=== PATIENT | female | born 1975 | race Caucasian/White ===

== ENCOUNTER 2016-10-17 13:54 | Emergency (ER) | payer OTHER ==
[~2016-10-17] VITALS: Ht 162.6 cm; Wt 108.9 kg
[~2016-10-17 13:54] MED LIST: A-B OTIC EAR DR15 ML OT; AMOXICILLIN875 MG PO; AUGMENTIN 875-1 EACH PO; AUGMENTIN 875875 MG PO; CELEXA20 MG PO; CORTISPORIN OTI10 M2 OT; IBUPROFEN 800800 M1 PO; LORTABELXR PO; MACROBID 100 M100 M1 PO; MEDROLDOSEPACK PO; NEURONTIN 300300 M1 PO; NOHOMEMEDICATIONS; NORCO 5-325 TA1 EACH PO; PENICILLIN VK500 M1 PO; PENICILLIN VK500 MG PO; PREDNISONE 20 M20 MG PO; PRENATAL PO; TRINATE TABLET1 TAB PO; TUSSIONEX PENN473 ML PO; TYLENOL EXTRA500 MG; ULTRAM 50MG TAB50 MG PO; VENTOLIN HFA 1818 GM INH; ZOLOFT50 MG; ZPAK PO
[2016-10-17] MEDS ORDERED: TRINATE TABLET1 TAB PO (14:36)
[2016-10-17] MEDS ORDERED: IBUPROFEN 600600 M1 PO (14:37)
[2016-10-17] MEDS ORDERED: BACTRIM DS TAB1 EACH PO (14:48)
[2016-10-17] MEDS ORDERED: KEFLEX500 MG PO (14:48)
[2016-10-17] MEDS ORDERED: NORCO 5-325 TA1 EACH PO (14:48)
== END 2016-10-17 15:24 | disposition home or self-care (01) ==
LOC: ER 13:54
DX: O86.0 Infection of obstetric surgical wound (principal); L02.415 Cutaneous abscess of right lower limb; F17.210 Nicotine dependence, cigarettes, uncomplicated; Z90.49 Acquired absence of other specified parts of digestive tract; Z98.890 Other specified postprocedural states

== ENCOUNTER 2017-06-04 18:08 | Emergency (ER) | payer OTHER ==
[~2017-06-04] VITALS: Ht 162.6 cm; Wt 104.3 kg
[~2017-06-04 18:08] MED LIST changes: +AUGMENTIN 500-1 EACH PO; +BACTRIM DS TAB1 EACH PO; +CIPRODEX OTIC7.5 ML OTIC; +IBUPROFEN 600600 M1 PO; +KEFLEX500 MG PO; +TRAMADOL 50 MG50 MG PO
[2017-06-04] MEDS ORDERED: DOXYCYCLINE 10100 MG PO (19:37)
[2017-06-04] MEDS ORDERED: PROMETHAZINE/C118 ML PO (19:37)
[2017-06-04 19:52] VITALS: BP 141/72
[2017-09-17] MEDS ORDERED: NAPROSYN500 MG PO (17:46)
== END 2017-06-04 19:52 | disposition home or self-care (01) ==
LOC: ER 18:08
DX: J15.9 Unspecified bacterial pneumonia (principal); F17.210 Nicotine dependence, cigarettes, uncomplicated; R56.9 Unspecified convulsions; Z90.49 Acquired absence of other specified parts of digestive tract

== ENCOUNTER 2017-06-11 12:56 | Emergency (ER) | payer OTHER ==
[~2017-06-11] VITALS: Ht 162.6 cm; Wt 104.3 kg
[~2017-06-11 12:56] MED LIST changes: +DOXYCYCLINE 10100 MG PO; +PROMETHAZINE/C118 ML PO
[2017-06-11 13:24] LABS: ABSOLUTE NEUTROPHILS 5.9 thou/uL (1.4-8.2); BASOPHILS 1.1 % (0.0-2.0); EOSINOPHILS 3.6 % (0.0-3.0); HEMATOCRIT 39.8 % (37.0-47.0); HEMOGLOBIN 13.6 gm/dL (12.0-15.0); LYMPHOCYTES 32.1 % (24.0-44.0); MCH 30.8 pg (26.0-34.0); MCHC 34.3 g/dL (28.0-37.0); MONOCYTES 5.9 % (1.0-8.0); PLATELET COUNT 460 thou/uL (150-400); POLYS 57.3 % (36.0-66.0); RBC 4.42 mil/uL (4.20-5.00); RDW 14.2 % (10.5-14.5); WBC 10.3 thou/uL (4.0-11.0)
[2017-06-11 13:27] LABS: CALCIUM 9.1 mg/dL (8.5-10.1); CREATININE 0.7 mg/dL (0.6-1.0); POTASSIUM 4.5 mmol/L (3.5-5.1)
[2017-06-11 13:33] LABS: ALBUMIN 3.1 g/dL (3.4-5.0); TOTAL BILIRUBIN 0.4 mg/dL (<0.1-1.0); TOTAL PROTEIN 8.2 g/dL (6.4-8.2)
[2017-06-11] MEDS ORDERED: VENTOLIN HFA 1818 GM INH (16:07)
[2017-06-11] MEDS ORDERED: PREDNISONE 20 M20 MG PO (16:07)
[2017-06-11] MEDS ORDERED: TESSALON PERLE100 MG PO (16:07)
[2017-06-11 16:13] VITALS: BP 132/95
[2017-09-17] MEDS ORDERED: NAPROSYN500 MG PO (17:46)
== END 2017-06-11 16:27 | disposition home or self-care (01) ==
LOC: ER 12:56
PROVIDERS: Nurse Practitioner Family
DX: J40 Bronchitis, not specified as acute or chronic (principal); F17.210 Nicotine dependence, cigarettes, uncomplicated; Z90.49 Acquired absence of other specified parts of digestive tract

== ENCOUNTER 2018-02-27 10:18 | Emergency (ER) | payer OTHER ==
[~2018-02-27] VITALS: Ht 162.6 cm; Wt 108.9 kg
[~2018-02-27 10:18] MED LIST changes: +NAPROSYN500 MG PO; +TESSALON PERLE100 MG PO
[2018-02-27] MEDS ORDERED: NORCO 5-325 TA1 EACH PO (13:13)
[2018-02-27] MEDS ORDERED: PREDNISONE 20 M20 MG PO (13:13)
[2018-02-27] MEDS ORDERED: MOBIC7.5 MG PO (13:13)
== END 2018-02-27 13:25 | disposition home or self-care (01) ==
LOC: ER 10:18
DX: M54.42 Lumbago with sciatica, left side (principal); Z90.49 Acquired absence of other specified parts of digestive tract; Z98.890 Other specified postprocedural states; F17.210 Nicotine dependence, cigarettes, uncomplicated

== ENCOUNTER 2018-03-10 18:16 | Emergency (ER) | payer OTHER ==
[~2018-03-10] VITALS: Ht 162.6 cm; Wt 111.1 kg
[~2018-03-10 18:16] MED LIST changes: +MOBIC7.5 MG PO
[2018-03-10] MEDS ORDERED: NAPROSYN500 MG PO (19:11)
[2018-03-10] MEDS ORDERED: HYDROCODONE-AP1 EAC6 PO (19:11)
== END 2018-03-10 19:50 | disposition home or self-care (01) ==
LOC: ER 18:16
DX: S83.8X2A Sprain of other specified parts of left knee, initial encounter (principal); F17.210 Nicotine dependence, cigarettes, uncomplicated; Z90.49 Acquired absence of other specified parts of digestive tract; Z98.890 Other specified postprocedural states; W10.9XXA Fall (on) (from) unspecified stairs and steps, initial encounter; Y92.89 Other specified places as the place of occurrence of the external cause; Y93.89 Activity, other specified; Y99.8 Other external cause status

== ENCOUNTER 2018-07-06 11:59 | Emergency (ER) | payer OTHER ==
[~2018-07-06] VITALS: Ht 162.6 cm; Wt 99.8 kg
[~2018-07-06 11:59] MED LIST changes: +HYDROCODONE-AP1 EAC6 PO
[2018-07-06 13:05] LABS: ABSOLUTE NEUTROPHILS 5.8 thou/uL (1.4-8.2); BASOPHILS 1.1 % (0.0-2.0); EOSINOPHILS 2.2 % (0.0-3.0); HEMATOCRIT 39.9 % (37.0-47.0); LYMPHOCYTES 26.1 % (24.0-44.0); MCH 33.5 pg (26.0-34.0); MCHC 35.1 g/dL (28.0-37.0); MCV 95.5 fL (80.0-100.0); MONOCYTES 7.3 % (1.0-8.0); PLATELET COUNT 359 thou/uL (150-400); POLYS 63.3 % (36.0-66.0); RBC 4.17 mil/uL (4.20-5.00); RDW 12.4 % (10.5-14.5); WBC 9.1 thou/uL (4.0-11.0)
[2018-07-06 13:14] LABS: CALCIUM 9.6 mg/dL (8.5-10.1); CREATININE 0.7 mg/dL (0.6-1.0); POTASSIUM 4.6 mmol/L (3.5-5.1)
[2018-07-06] MEDS ORDERED: NOHOMEMEDICATIONS (13:37)
[2018-07-06] MEDS ORDERED: NO HOME MEDS (13:39)
[2018-07-06] MEDS ORDERED: NORCO 5-325 TA1 EACH PO (14:15)
[2018-07-06] MEDS ORDERED: PREDNISONE50 MG PO (14:15)
[2018-07-06 14:45] VITALS: BP 126/78
== END 2018-07-06 14:48 | disposition home or self-care (01) ==
LOC: ER 11:59
PROVIDERS: Emergency Medicine
DX: J06.9 Acute upper respiratory infection, unspecified (principal); R42 Dizziness and giddiness; F17.210 Nicotine dependence, cigarettes, uncomplicated; Z90.49 Acquired absence of other specified parts of digestive tract; Z98.890 Other specified postprocedural states

== ENCOUNTER 2018-08-19 10:52 | Emergency (ER) | payer OTHER ==
[~2018-08-19] VITALS: Ht 162.6 cm; Wt 104.3 kg
[~2018-08-19 10:52] MED LIST changes: +NO HOME MEDS; +PREDNISONE50 MG PO
[2018-08-19 12:17] LABS: ABSOLUTE NEUTROPHILS 4.2 thou/uL (1.4-8.2); BASOPHILS 1.3 % (0.0-2.0); EOSINOPHILS 1.1 % (0.0-3.0); HEMATOCRIT 41.1 % (37.0-47.0); HEMOGLOBIN 14.3 gm/dL (12.0-15.0); LYMPHOCYTES 17.9 % (24.0-44.0); MCH 33.1 pg (26.0-34.0); MCHC 34.7 g/dL (28.0-37.0); MCV 95.3 fL (80.0-100.0); MONOCYTES 6.6 % (1.0-8.0); PLATELET COUNT 287 thou/uL (150-400); POLYS 73.1 % (36.0-66.0); RBC 4.31 mil/uL (4.20-5.00); RDW 12.9 % (10.5-14.5); WBC 5.7 thou/uL (4.0-11.0)
[2018-08-19 12:23] LABS: CALCIUM 9.1 mg/dL (8.5-10.1); CREATININE 0.6 mg/dL (0.6-1.0); POTASSIUM 4.5 mmol/L (3.5-5.1)
[2018-08-19] MEDS ORDERED: REGLAN 10 MG TA10 MG PO (13:12)
[2018-08-19 13:21] VITALS: BP 154/101
== END 2018-08-19 13:34 | disposition home or self-care (01) ==
LOC: ER 10:52
PROVIDERS: Emergency Medicine
DX: G43.909 Migraine, unspecified, not intractable, without status migrainosus (principal); H50.89 Other specified strabismus; F17.210 Nicotine dependence, cigarettes, uncomplicated; Z90.49 Acquired absence of other specified parts of digestive tract; Z98.890 Other specified postprocedural states

== ENCOUNTER 2018-10-05 16:37 | Emergency (ER) | payer OTHER ==
[~2018-10-05] VITALS: Ht 162.6 cm; Wt 104.3 kg
[~2018-10-05 16:37] MED LIST changes: +REGLAN 10 MG TA10 MG PO
[2018-10-05 19:06] LABS: BASOPHILS 0.8 % (0.0-2.0); EOSINOPHILS 2.8 % (0.0-3.0); HEMATOCRIT 42.8 % (37.0-47.0); HEMOGLOBIN 14.5 gm/dL (12.0-15.0); LYMPHOCYTES 19.9 % (24.0-44.0); MCHC 33.9 g/dL (28.0-37.0); MCV 97.3 fL (80.0-100.0); MONOCYTES 8.3 % (1.0-8.0); PLATELET COUNT 219 thou/uL (150-400); POLYS 68.2 % (36.0-66.0); RDW 13.9 % (10.5-14.5); WBC 5.9 thou/uL (4.0-11.0)
[2018-10-05 19:11] LABS: ANION GAP 12 mmol/L (7-16); BUN 10 mg/dL (7-18); CHLORIDE 97 mmol/L (98-107); CO2 26 mmol/L (21-32); CREATININE 0.8 mg/dL (0.6-1.0); GLUCOSE 88 mg/dL (74-106); POTASSIUM 4.1 mmol/L (3.5-5.1); SODIUM 135 mmol/L (136-145)
[2018-10-05 19:31] LABS: ALBUMIN 3.4 g/dL (3.4-5.0); SGOT 54 U/L (15-37); SGPT 72 U/L (30-65); TOTAL BILIRUBIN 0.8 mg/dL (<0.1-1.0); TOTAL PROTEIN 8.9 g/dL (6.4-8.2); TROPONIN-I <0.06 ng/mL (<0.06)
[2018-10-05] MEDS ORDERED: PROMETH-CODEIN 65 ML PO (19:49)
[2018-10-05] MEDS ORDERED: DOXYCYCLINE 10100 MG PO (19:49)
[2018-10-05] MEDS ORDERED: VENTOLIN HFA 1818 GM INH (19:51)
[2018-10-05 20:41] VITALS: BP 163/106
== END 2018-10-05 20:42 | disposition home or self-care (01) ==
LOC: ER 16:37
PROVIDERS: Physician Assistant
DX: J18.9 Pneumonia, unspecified organism (principal); F17.210 Nicotine dependence, cigarettes, uncomplicated; Z90.49 Acquired absence of other specified parts of digestive tract; Z98.890 Other specified postprocedural states

== ENCOUNTER 2019-02-22 11:00 | Emergency (ER) | payer OTHER ==
[~2019-02-22] VITALS: Ht 162.6 cm; Wt 105.2 kg
[~2019-02-22 11:00] MED LIST changes: +PROMETH-CODEIN 65 ML PO
[2019-02-22 11:17] LABS: URINE BILIRUBIN NEGATIVE (Negative); URINE BLOOD TRACE (Negative); URINE CLARITY SL CLOUDY; URINE COLOR YELLOW; URINE GLUCOSE-RANDOM* NEGATIVE (Negative); URINE KETONES NEGATIVE (Negative); URINE LEUKOCYTES-REFLEX 2+ (Negative); URINE NITRITE-REFLEX NEGATIVE (Negative); URINE PROTEIN (DIPSTICK) NEGATIVE (Negative); URINE SPECIFIC GRAVITY 1.015 (1.005-1.035); URINE UROBILINOGEN 0.2 E.U./dl (0.2-1.0)
[2019-02-22 11:26] LABS: BACTERIA-REFLEX >30 Many /HPF (None Seen); CASTS None Seen /LPF (None Seen); CRYSTALS None Seen /LPF (None Seen); SQUAMOUS >10 Many /LPF (0-3); URINE RBC None Seen /HPF (0-2); URINE WBC-REFLEX 6-15 Few /HPF (0-5)
[2019-02-22 11:35] LABS: ABSOLUTE NEUTROPHILS 3.8 thou/uL (1.4-8.2); BASOPHILS 0.9 % (0.0-2.0); EOSINOPHILS 1.5 % (0.0-3.0); HEMATOCRIT 41.6 % (37.0-47.0); HEMOGLOBIN 14.7 gm/dL (12.0-15.0); LYMPHOCYTES 28.5 % (24.0-44.0); MCH 33.5 pg (26.0-34.0); MCHC 35.3 g/dL (28.0-37.0); MCV 94.7 fL (80.0-100.0); MONOCYTES 9.1 % (1.0-8.0); PLATELET COUNT 256 thou/uL (150-400); RBC 4.39 mil/uL (4.20-5.00); RDW 14.6 % (10.5-14.5); WBC 6.4 thou/uL (4.0-11.0)
[2019-02-22 12:05] LABS: CALCIUM 9.7 mg/dL (8.5-10.1); CREATININE 0.7 mg/dL (0.6-1.0); POTASSIUM 4.1 mmol/L (3.5-5.1)
[2019-02-22 12:12] LABS: ALBUMIN 3.1 g/dL (3.4-5.0); TOTAL BILIRUBIN 0.7 mg/dL (<0.1-1.0); TOTAL PROTEIN 8.7 g/dL (6.4-8.2)
[2019-02-22] MEDS ORDERED: BACTRIM DS TAB1 EACH PO (12:46)
[2019-02-22] MEDS ORDERED: PHENAZOPYRIDIN200 M2 PO (12:46)
[2019-02-22] MEDS ORDERED: NORCO 5-325 TA1 EAC1 PO (12:46)
[2019-02-22 12:51] LABS: PLATELET ESTIMATE NORMAL
[2019-02-22 14:42] VITALS: BP 168/120
[2019-02-22] MEDS ORDERED: LISINOPRIL10 MG PO ×5 (14:45→14:56)
== END 2019-02-22 15:03 | disposition home or self-care (01) ==
LOC: ER 11:00
PROVIDERS: Physician Assistant
DX: N12 Tubulo-interstitial nephritis, not specified as acute or chronic (principal); I10 Essential (primary) hypertension; F17.210 Nicotine dependence, cigarettes, uncomplicated; Z90.49 Acquired absence of other specified parts of digestive tract; Z98.890 Other specified postprocedural states

== ENCOUNTER 2019-08-09 13:16 | Emergency (ER) | payer OTHER ==
[~2019-08-09] VITALS: Ht 165.1 cm; Wt 108.9 kg
[~2019-08-09 13:16] MED LIST changes: +LISINOPRIL10 MG PO; +NORCO 5-325 TA1 EAC1 PO; +PHENAZOPYRIDIN200 M2 PO
[2019-08-09 14:14] LABS: HEMATOCRIT 44.9 % (37.0-47.0); HEMOGLOBIN 15.2 gm/dL (12.0-15.0); MCH 34.4 pg (26.0-34.0); MCV 101.3 fL (80.0-100.0); RBC 4.43 mil/uL (4.20-5.00); RDW 13.8 % (10.5-14.5)
[2019-08-09 14:21] LABS: BE(vivo) -3.4 mmol/L (-2 to +3); HCO3 19.9 mmol/L (22.0-26.0); PCO2 31.6 mmHg (35.0-45.0); PO2 85.2 mmHg (80.0-100.0); pH 7.418 (7.360-7.450); sO2 96.7 % (92.0-98.0)
[2019-08-09 14:26] LABS: ANION GAP 9 mmol/L (7-16); BUN 6 mg/dL (7-18); CALCIUM 8.9 mg/dL (8.5-10.1); CHLORIDE 98 mmol/L (98-107); CO2 26 mmol/L (21-32); CREATININE 0.8 mg/dL (0.6-1.0); GLUCOSE 105 mg/dL (74-106); POTASSIUM 4.3 mmol/L (3.5-5.1); SODIUM 133 mmol/L (136-145)
[2019-08-09 14:34] LABS: TROPONIN-I <0.06 ng/mL (<0.06)
[2019-08-09] MEDS ORDERED: PROAIR HFA8.5 GM INH (15:16)
[2019-08-09] MEDS ORDERED: PREDNISONE 20 M20 MG PO (15:16)
[2019-08-09] MEDS ORDERED: ALBUTEROL2.5 MG/31 INH (15:16)
[2019-08-09] MEDS ORDERED: ZPAK PO (15:16)
[2019-08-09] MEDS ORDERED: PROMETH-CODEIN 65 ML PO (15:17)
[2019-08-09 15:23] VITALS: BP 150/95
--- NOTE | 2019-08-09 16:12 | EKG ---
[facility] [place] [address] ELECTROCARDIOGRAM REPORT Name: ADEEL VINES Room #: [facility]#: [id number] Admission: 08/09/19 Attend Phys: Discharge: Date of : 75 Report #: [id number] THIS REPORT FOR: cc: NO FAMILY PHYSICIAN or PCP FAM - No family physician/PCP Gabriel Dang MD ~ THIS REPORT FOR: //name// [facility] ED Test Date: 2019-08-09 Test Time: 14:22:28 Pat Name: ADEEL VINES Department: Room: Gender: F Technical Agronomist: keyshawn : 1975 Requested By: Blake Walton Order Number: [id number] MD: Gabriel Dang Measurements Intervals [place] Rate: 100 P: 50 CA: 150 QRS: -2 QRSD: 83 T: 34 QT: 347 QTc: 448 Interpretive Statements Sinus tachycardia Left atrial enlargement Compared to ECG 07/23/2015 00:59:38 Atrial abnormality now present ST (T wave) deviation no longer present Electronically Signed On 08-09-2019 16:11:13 CDT by Gabriel Dang [email or web address] <ELECTRONICALLY SIGNED> By: Gabriel Dang MD 08/09/19 1611 1422 1422 Gabriel Dang MD /EPI
== END 2019-08-09 15:23 | disposition home or self-care (01) ==
LOC: ER 13:16
PROVIDERS: Emergency Medicine
DX: J45.901 Unspecified asthma with (acute) exacerbation (principal); F17.210 Nicotine dependence, cigarettes, uncomplicated; Z90.49 Acquired absence of other specified parts of digestive tract; R42 Dizziness and giddiness